=== PATIENT | male | born 1970 | race Caucasian/White ===

== ENCOUNTER 2020-01-29 17:16 | Emergency (ER) | payer OTHER ==
[~2020-01-29] VITALS: Ht 182.9 cm; Wt 136.1 kg
[~2020-01-29 17:16] MED LIST: AMIT10 PO; AMITRIPTYLINE PO; CLON2 PO; DIVA500EC PO; DULO60 PO; ENAL5 PO; FLUSAL2505 IH; GLUCOSAMINE CH1 EAC1 PO; HYDACE5 PO; HYDCHL12.5 PO; LISHYD2025 PO; LISI20 PO; MONT10T PO; Norco 5-325 Ta1 EACH PO; OLME40 PO; OXYACE5T PO; PRISTIQ ER25 MG PO; PROM25 PO; Percocet 5-3251 EACH PO; TESTOSTERONE; TESTOSTERONE IJ
[2020-01-29] MEDS ORDERED: Inderal40 MG PO (17:30)
[2020-01-29] MEDS ORDERED: LOSA50 PO (17:31)
[2020-01-29 19:51] LABS: BASOPHILS PERCENT AUTO 1 % (0-2); EOSINOPHILS ABSOLUTE AUTO 0.41 K/mm3 (0.00-0.68); EOSINOPHILS PERCENT AUTO 3 % (0-6); Hematocrit 53.2 % (37.0-53.0); Hemoglobin 17.3 g/dL (13.5-17.5); IMMATURE GRAN ABSOLUTE AUTO 0.16 K/mm3 (0.00-0.10); IMMATURE GRAN PERCENT AUTO 1 % (0-1); LYMPHOCYTES ABSOLUTE AUTO 3.28 K/mm3 (0.84-5.20); LYMPHOCYTES PERCENT AUTO 22 % (21-46); MONOCYTES PERCENT AUTO 7 % (4-13); Mean Corpuscular HGB 28.7 pg (26.0-34.0); Mean Corpuscular HGB Conc 32.5 g/dL (31.5-36.5); Mean Corpuscular Volume 88 fL (80-100); Mean Platelet Volume 9.1 fL (9.1-12.4); NEUTROPHILS ABSOLUTE AUTO 10.15 K/mm3 (1.96-9.15); NEUTROPHILS PERCENT AUTO 67 % (41-73); Platelet Count 352 K/mm3 (150-400); RDW Coefficient Variation 13.3 % (11.7-14.2); RDW Standard Deviation 43.3 fL (35.1-46.3); Red Blood Cell Count 6.03 M/mm3 (4.30-5.90)
[2020-01-29 20:16] LABS: Alanine Aminotransfer (ALT/SGP 29 U/L (12-78); Alk Phos 108 U/L (50-136); Anion Gap 5 mmol/L (6-16); Aspartate Aminotrans (AST/SGOT 15 U/L (12-37); Bilirubin, Total 0.8 mg/dL (0.1-1.0); Blood Urea Nitrogen 18 mg/dL (8-24); Bun/Creatinine Ratio 15.9 (12.0-20.0); CO2, Blood 30 mmol/L (21-32); Chloride, Blood 106 mmol/L (98-108); Creatinine, Blood 1.13 mg/dL (0.60-1.20); Globulin, Blood 4.2 g/dL (2.2-4.0); Glomerular Filtration Rate >60 (60-); Glucose, Blood 82 mg/dL (70-99); Potassium, Blood 3.8 mmol/L (3.5-5.5); Sodium, Blood 141 mmol/L (136-145); Total Protein, Blood 8.2 g/dL (6.4-8.2); Troponin I <0.015 ng/mL (0.000-0.040)
== END 2020-01-29 22:26 | disposition home or self-care (01) ==
LOC: ER 17:16
PROVIDERS: Emergency Medicine
DX: R07.89 Other chest pain (principal); I10 Essential (primary) hypertension; Z88.5 Allergy status to narcotic agent; Z79.899 Other long term (current) drug therapy; Z87.891 Personal history of nicotine dependence
CPT/HCPCS: 71101; 71250; 80053; 83690; 83735; 84484; 85025; 93005; 93010; 99285-25

== ENCOUNTER 2020-03-08 18:20 | Emergency (ER) | payer OTHER ==
[~2020-03-08] VITALS: Ht 182.9 cm; Wt 136.1 kg
[~2020-03-08 18:20] MED LIST changes: +Inderal40 MG PO; +LOSA50 PO
[2020-03-08 19:13] LABS: BASOPHILS ABSOLUTE AUTO 0.15 K/mm3 (0.00-0.23); BASOPHILS PERCENT AUTO 1 % (0-2); EOSINOPHILS ABSOLUTE AUTO 0.61 K/mm3 (0.00-0.68); EOSINOPHILS PERCENT AUTO 5 % (0-6); Hematocrit 48.1 % (37.0-53.0); Hemoglobin 15.7 g/dL (13.5-17.5); IMMATURE GRAN ABSOLUTE AUTO 0.25 K/mm3 (0.00-0.10); IMMATURE GRAN PERCENT AUTO 2 % (0-1); LYMPHOCYTES ABSOLUTE AUTO 2.99 K/mm3 (0.84-5.20); LYMPHOCYTES PERCENT AUTO 23 % (21-46); MONOCYTES ABSOLUTE AUTO 0.94 K/mm3 (0.16-1.47); MONOCYTES PERCENT AUTO 7 % (4-13); Mean Corpuscular HGB 28.3 pg (26.0-34.0); Mean Corpuscular HGB Conc 32.6 g/dL (31.5-36.5); Mean Corpuscular Volume 87 fL (80-100); Mean Platelet Volume 8.9 fL (9.1-12.4); NEUTROPHILS ABSOLUTE AUTO 7.93 K/mm3 (1.96-9.15); NEUTROPHILS PERCENT AUTO 62 % (41-73); Platelet Count 431 K/mm3 (150-400); RDW Coefficient Variation 13.2 % (11.7-14.2); RDW Standard Deviation 42.7 fL (35.1-46.3); Red Blood Cell Count 5.54 M/mm3 (4.30-5.90); White Blood Cell Count 12.87 K/mm3 (4.00-11.30)
[2020-03-08 19:17] LABS: Source, Urine Clean Catch
[2020-03-08 19:30] LABS: Bilirubin, Urine Neg (Neg); Blood, Urine 1+ (Neg); Glucose Qualitative, Urine Neg (Neg); Ketones, Urine Neg (Neg); Leukocyte Esterase, Urine Neg (Neg); Nitrite, Urine Neg (Neg); Protein, Urine 2+ (Neg); Urobilinogen, Urine NORM (Normal)
[2020-03-08 19:36] LABS: Alanine Aminotransfer (ALT/SGP 28 U/L (12-78); Albumin, Blood 3.3 g/dL (3.4-5.0); Albumin/Globulin Ratio 0.8 (0.8-1.8); Alk Phos 97 U/L (50-136); Anion Gap 8 mmol/L (6-16); Aspartate Aminotrans (AST/SGOT 25 U/L (12-37); Beta HCG, Quantitative, Serum <1 mIU/mL (0-1); Bilirubin, Total 0.5 mg/dL (0.1-1.0); Blood Urea Nitrogen 13 mg/dL (8-24); Bun/Creatinine Ratio 14.2 (12.0-20.0); CO2, Blood 23 mmol/L (21-32); Chloride, Blood 102 mmol/L (98-108); Creatinine, Blood 0.92 mg/dL (0.60-1.20); Ethanol (Alcohol), Blood, Med 80 mg/dL; Globulin, Blood 3.9 g/dL (2.2-4.0); Glomerular Filtration Rate >60 (60-); Glucose, Blood 133 mg/dL (70-99); Potassium, Blood 3.8 mmol/L (3.5-5.5); Sodium, Blood 133 mmol/L (136-145); Total Protein, Blood 7.2 g/dL (6.4-8.2)
[2020-03-08 19:47] LABS: Appearance, Urine Clear (Clear); Color, Urine Yellow (P-Yellow)
[2020-03-08 19:48] LABS: Bacteria Not Seen /hpf; Red Blood Cells, Urine Rare /hpf (0-2); Squamous Epithelial Cells Rare /hpf (Few); White Blood Cells, Urine Not Seen /hpf (0-5)
[2020-03-08 19:50] LABS: International Normalized Ratio 1.06; Prothrombin Time Results 11.3 Sec (9.7-11.5)
[2020-03-08] MEDS ORDERED: Norco 5-325 Ta1 EACH PO (20:13)
== END 2020-03-08 20:46 | disposition home or self-care (01) ==
LOC: ER 18:20
PROVIDERS: Emergency Medicine
DX: S42.115A Nondisplaced fracture of body of scapula, left shoulder, initial encounter for closed fracture (principal); S22.42XA Multiple fractures of ribs, left side, initial encounter for closed fracture; S27.321A Contusion of lung, unilateral, initial encounter; I10 Essential (primary) hypertension; F17.290 Nicotine dependence, other tobacco product, uncomplicated; Z88.5 Allergy status to narcotic agent; Z79.899 Other long term (current) drug therapy; V20.4XXA Motorcycle driver injured in collision with pedestrian or animal in traffic accident, initial encounter; Y92.410 Unspecified street and highway as the place of occurrence of the external cause
CPT/HCPCS: 70450; 71260; 72125; 74177; 80053; 81001; 83690; 84702; 85025; 85610; 96374-59; 99284-25; A9270; A9270-GY; G0480; J3010; Q9967

== ENCOUNTER 2022-02-07 12:25 | Day surgery (SDC) | payer OTHER ==
[~2022-02-07] VITALS: Ht 188 cm; Wt 123.4 kg
[2022-02-07] MEDS ORDERED: Voltaren100 GM (13:14)
[2022-02-07] MEDS ORDERED: HYDCHL25 (13:14)
[2022-02-07] MEDS ORDERED: Lithium Carbon450 MG (13:15)
[2022-02-07] MEDS ORDERED: MONT10T (13:15)
[2022-02-07] MEDS ORDERED: TELM80 (13:15)
== END 2022-02-07 14:57 | disposition home or self-care (01) ==
LOC: ORSCSDS 12:25
PROVIDERS: Internal Medicine Gastroenterology
PROC: 0DJD8ZZ Inspection of Lower Intestinal Tract, Via Natural or Artificial Opening Endoscopic (ICD-10-PCS; principal; 2022-02-07 13:30)
DX: Z12.11 Encounter for screening for malignant neoplasm of colon (principal); K57.30 Diverticulosis of large intestine without perforation or abscess without bleeding; I10 Essential (primary) hypertension; Z87.891 Personal history of nicotine dependence; E66.9 Obesity, unspecified; Z68.37 Body mass index [BMI] 37.0-37.9, adult; F31.9 Bipolar disorder, unspecified; F43.10 Post-traumatic stress disorder, unspecified; Z79.899 Other long term (current) drug therapy; G47.33 Obstructive sleep apnea (adult) (pediatric)
CPT/HCPCS: J2250; J2704; J7120

== ENCOUNTER 2023-04-22 08:50 | Emergency (ER) | payer OTHER ==
[~2023-04-22] VITALS: Ht 182.9 cm; Wt 136.1 kg
[~2023-04-22 08:50] MED LIST changes: +HYDCHL25 PO; +Lithium Carbon450 MG; +MONT10T; +TELM80 PO; +Voltaren100 GM
[2023-04-22 16:23] LABS: BASOPHILS ABSOLUTE AUTO 0.11 K/mm3 (0.00-0.23); BASOPHILS PERCENT AUTO 1 % (0-2); EOSINOPHILS ABSOLUTE AUTO 0.37 K/mm3 (0.00-0.68); EOSINOPHILS PERCENT AUTO 3 % (0-6); Hematocrit 53.3 % (37.0-53.0); Hemoglobin 18.1 g/dL (13.5-17.5); IMMATURE GRAN ABSOLUTE AUTO 0.09 K/mm3 (0.00-0.10); IMMATURE GRAN PERCENT AUTO 1 % (0-1); LYMPHOCYTES ABSOLUTE AUTO 2.62 K/mm3 (0.84-5.20); LYMPHOCYTES PERCENT AUTO 19 % (21-46); MONOCYTES ABSOLUTE AUTO 0.95 K/mm3 (0.16-1.47); MONOCYTES PERCENT AUTO 7 % (4-13); Mean Corpuscular HGB 28.7 pg (26.0-34.0); Mean Corpuscular Volume 85 fL (80-100); Mean Platelet Volume 8.6 fL (9.1-12.4); NEUTROPHILS ABSOLUTE AUTO 9.41 K/mm3 (1.96-9.15); NEUTROPHILS PERCENT AUTO 70 % (41-73); Platelet Count 373 K/mm3 (150-400); RDW Coefficient Variation 13.3 % (11.7-14.2); White Blood Cell Count 13.55 K/mm3 (4.00-11.30)
[2023-04-22 17:05] LABS: Albumin, Blood 3.9 g/dL (3.4-5.0); Bilirubin, Total 0.9 mg/dL (0.1-1.0); Bun/Creatinine Ratio 18.5 (12.0-20.0); Calcium, Blood 10.2 mg/dL (8.5-10.1); Creatinine, Blood 0.87 mg/dL (0.60-1.20); Globulin, Blood 3.9 g/dL (2.2-4.0); Potassium, Blood 3.8 mmol/L (3.5-5.5); Total Protein, Blood 7.8 g/dL (6.4-8.2)
[2023-04-22] MEDS ORDERED: DESV50 PO (22:52)
[2023-04-23 08:02] VITALS: BP 142/105
== END 2023-04-23 09:29 | disposition short-term general hospital (02) ==
LOC: ER 08:50
PROVIDERS: Emergency Medicine
DX: S22.039A Unspecified fracture of third thoracic vertebra, initial encounter for closed fracture (principal); C79.89 Secondary malignant neoplasm of other specified sites; X50.1XXA Overexertion from prolonged static or awkward postures, initial encounter; I10 Essential (primary) hypertension; Z87.891 Personal history of nicotine dependence; Z88.5 Allergy status to narcotic agent; Z79.899 Other long term (current) drug therapy
CPT/HCPCS: 72157; 72158; 80053; 85025; A9270; A9579; G0103; J1885

== ENCOUNTER 2023-08-06 04:27 | Inpatient (IN) | payer OTHER ==
[~2023-08-06] VITALS: Ht 182.9 cm; Wt 127.6 kg
[~2023-08-06 04:27] MED LIST changes: +DESV50 PO
[2023-08-06] MEDS ORDERED: NS 1,000 ML IV SCH ×3 (04:40→11:00)
[2023-08-06 04:48] LABS: Hematocrit 29.1 % (37.0-53.0); Hemoglobin 10.3 g/dL (13.5-17.5); Mean Corpuscular HGB 29.8 pg (26.0-34.0); Mean Corpuscular HGB Conc 35.4 g/dL (31.5-36.5); Mean Corpuscular Volume 84 fL (80-100); Mean Platelet Volume 9.8 fL (9.1-12.4); Platelet Count 64 K/mm3 (150-400); RDW Coefficient Variation 15.2 % (11.7-14.2); RDW Standard Deviation 44.5 fL (35.1-46.3); Red Blood Cell Count 3.46 M/mm3 (4.30-5.90); White Blood Cell Count 17.01 K/mm3 (4.00-11.30)
[2023-08-06 05:13] LABS: BAND PERCENT MAN 11 % (0-8); BASOPHILS PERCENT MAN 0 % (0-2); EOSINOPHILS PERCENT MAN 0 % (0-6); LYMPHOCYTES ABSOLUTE MAN 0.17 K/mm3 (0.84-5.20); LYMPHOCYTES PERCENT MAN 1 % (21-46); MONOCYTES ABSOLUTE MAN 0.17 K/mm3 (0.16-1.47); MONOCYTES PERCENT MAN 1 % (4-13); NEUTROPHILS ABSOLUTE MAN 16.66 K/mm3 (1.96-9.15); SEG NEUTROPHILS PERCENT MAN 87 % (41-73); TOTAL CELLS COUNTED 100
[2023-08-06 05:18] LABS: Magnesium, Blood 1.9 mg/dL (1.6-2.4)
[2023-08-06] MEDS ORDERED: OMEP20ER PO (05:27)
[2023-08-06] MEDS ORDERED: ONDA4ODT MM (05:28)
[2023-08-06] MEDS ORDERED: HYDCHL25 PO (05:28)
[2023-08-06] MEDS ORDERED: MIRALAX11914 PO (05:29)
[2023-08-06] MEDS ORDERED: LIDOCAINE1 EACH TOP (05:29)
[2023-08-06] MEDS ORDERED: HYDMOR4 PO (05:29)
[2023-08-06] MEDS ORDERED: PROC25S PR (05:29)
[2023-08-06] MEDS ORDERED: OXYC15ER PO (05:30)
[2023-08-06] MEDS ORDERED: DECADRON4 M1 PO (05:30)
[2023-08-06] MEDS ORDERED: LORA10ER PO (05:30)
[2023-08-06] MEDS ORDERED: [UNRECOGNIZED DRUG - OTHER] (05:31)
[2023-08-06] MEDS ORDERED: MORP15ER PO (05:31)
[2023-08-06] MEDS ORDERED: ELIQUIS5 M2 PO (05:32)
[2023-08-06] MEDS ORDERED: Lyrica300 MG PO (05:32)
[2023-08-06 05:41] LABS: Albumin, Blood 3.1 g/dL (3.4-5.0); Bilirubin, Total 1.4 mg/dL (0.1-1.0); Bun/Creatinine Ratio 18.3 (12.0-20.0); Calcium, Blood 8.6 mg/dL (8.5-10.1); Creatinine, Blood 0.76 mg/dL (0.60-1.20); Globulin, Blood 3.1 g/dL (2.2-4.0); Total Protein, Blood 6.2 g/dL (6.4-8.2)
[2023-08-06 05:44] LABS: Potassium, Blood 2.3 mmol/L (3.5-5.5)
[2023-08-06] MEDS ORDERED: Potassium Chl 20MEQ/Water100ML 100 ML IV SCH ×3 (05:50→22:30)
[2023-08-06] MEDS ORDERED: Magnesium Sulf 2 GM/Water 50ML 50 ML IV ONE (06:20)
[2023-08-06] MEDS ORDERED: Metoclopramide HCl 5MG / ML 2ML Vial IV ONE (06:20)
[2023-08-06] MEDS ORDERED: Ketorolac Tromethamine 30mg Vial IV ONE (06:25)
[2023-08-06 07:18] LABS: Source, Urine Clean Catch
[2023-08-06 07:24] LABS: Appearance, Urine Clear (Clear); Bilirubin, Urine Neg (Neg); Blood, Urine 4+ (Neg); Glucose Qualitative, Urine Neg (Neg); Ketones, Urine Neg (Neg); Leukocyte Esterase, Urine Neg (Neg); Nitrite, Urine Neg (Neg); Protein, Urine 2+ (Neg); Urobilinogen, Urine NORM (Normal)
[2023-08-06 07:28] LABS: Color, Urine Pale Yellow (P-Yellow)
[2023-08-06 07:31] LABS: Squamous Epithelial Cells Rare /hpf (Few); White Blood Cells, Urine 0-2 /hpf (0-5)
[2023-08-06 07:32] LABS: Bacteria Rare /hpf
[2023-08-06 07:33] LABS: Hyaline Casts 0-2 /lpf (0-2)
[2023-08-06] MEDS ORDERED: LORazepam 2 MG/ML 1ML Injection IV ONE (07:55)
[2023-08-06] MEDS ORDERED: Metoclopramide HCl 5MG / ML 2ML Vial IV PRN (11:00)
[2023-08-06] MEDS ORDERED: Acetaminophen 325 MG TABLET PO PRN (11:00)
[2023-08-06] MEDS ORDERED: NS 250 ML IV PRN (11:00)
[2023-08-06] MEDS ORDERED: Acetaminophen 650 MG Supp PR PRN (11:00)
[2023-08-06] MEDS ORDERED: ClonazePAM 1 MG Tab PO PRN (11:05)
[2023-08-06] MEDS ORDERED: Lidocaine 2% Viscous Soln 20 ML,Nystatin 100,000 Unit/ml Susp 20 ML,Mag Hydrox/Al Hydro... MT PRN (11:10)
[2023-08-06] MEDS ORDERED: HYDROmorphone HCl/Pf 1MG SYR IV PRN (11:10)
[2023-08-06] MEDS ORDERED: OxyCODONE HCL 5 MG TAB PO PRN (11:25)
[2023-08-06] MEDS ORDERED: Dexamethasone Sodium Phosphate 4 MG/ML 1ML Vial IV SCH ×2 (12:00→15:00)
[2023-08-06] MEDS ORDERED: AMLO5 PO (12:36)
[2023-08-06] MEDS ORDERED: MESNA PO (12:39)
[2023-08-06] MEDS ORDERED: Misc. Tablet PO ONE (13:50)
[2023-08-06] MEDS ORDERED: dexAMETHasone 4 MG TAB PO SCH (14:00)
[2023-08-06] MEDS ORDERED: MESNA PO SCH (14:25)
[2023-08-06] MEDS ORDERED: Pantoprazole Sodium 40 MG Injection IV SCH (16:30)
--- NOTE | 2023-08-06 17:50 | NUR ---
SHIFT SUMMARY PT AXO, PLEASANT AND COOPERATIVE WITH CARE THOUGH [facility]. PT ADMITTED THIS SHIFT. PT HAD CHEMO AT [facility] ON MONDAY AND HAS BEEN HAVING N/V SINCE. PT'S SPOUSE STATED THAT HE WAS SUPPOSED TO TAKE A MEDICATION, MESNA, 14 TABS AFTER CHEMO, HE TOOK 4 AT HOME AND THEN VOMITED AND THEY BROUGHT THE OTHER 9 PILLS HERE FOR HIM TO TAKE SOON HE IS ABLE. THIS MED ON EMAR, THOUGH PT STATES THAT HE WOULD "RATHER NOT" TAKE THEM. THIS NURSE SPOKE WITH PHARMACY ABOUT ZOFRAN FOR N/V HOWEVER THIS PATIENT HAS QT ELONGATION AND IS NOT A CANDIDATE FOR THIS MEDICATION PER DR SUNSHINE. PT MEDICATED FOR PAIN AND NAUSEA PER EMAR. FLUIDS PER EMAR THROUGH [facility]. INFORMATION CARD FOR PORT IN CHART. PT RESTING COMFORTABLY WITH CPAP IN PLACE FOR SLEEP. BED IN LOW POSITON, CALL LIGHT WIHTIN REACH. SBA TO BATHROOM.
[2023-08-06 18:25] LABS: Bun/Creatinine Ratio 17.5 (12.0-20.0); Calcium, Blood 8.2 mg/dL (8.5-10.1); Creatinine, Blood 0.8 mg/dL (0.60-1.20); Potassium, Blood 2.8 mmol/L (3.5-5.5)
--- NOTE | 2023-08-06 18:32 | NUR ---
DR SUNSHINE NOTIFIED OF [facility] OF 2.8. NEW ORDERS PLACED.
[2023-08-06] MEDS ORDERED: Potassium Chloride 40 MEQ in NS 250 ML IV STA (18:34)
[2023-08-06 19:26] VITALS: BP 137/83
[2023-08-06] MEDS ORDERED: Morphine Sulfate 15 MG TABCR PO SCH (21:00)
[2023-08-06] MEDS ORDERED: Famotidine 10 MG/ML 2ML Vial IV SCH (21:00)
[2023-08-06] MEDS ORDERED: Apixaban 5 MG Tab PO SCH (21:00)
[2023-08-06] MEDS ORDERED: Pregabalin 75 MG Cap PO SCH (21:00)
[2023-08-07 03:40] VITALS: BP 143/82
--- NOTE | 2023-08-07 04:20 | NUR ---
SHIFT SUMMARY LEONOR WAS SLEEPING BUT EASILY ROUSABLE AND FULLY ORIENTED AT START OF SHIFT. PT HAD BEEN FEELING NAUSEOUS, BUT TOLERATED HIS EVENING MEDS, DECLINED TO TAKE HIS HOME MED. AROUND 0400 PT EXPRESSED THAT HE HAD TURNED A CORNER WITH HIS NAUSEA AND WAS FEELING MUCH BETTER, HE ALSO EXPRESSED HIS INTENTION TO NO LONGER PERSUE CHEMOTHERAPY AND USE HIS REMAINING TIME TO ENJOY HIS HOME LIFE. PT SEEMED TO BE IN A GOOD HEADSPACE WITH THIS DECISION. PT RESTING IN BED AT A LOW POSITION WITH CALL LIGHT IN REACH.
[2023-08-07 05:26] LABS: Hematocrit 26.3 % (37.0-53.0); Hemoglobin 9.2 g/dL (13.5-17.5); Mean Corpuscular Volume 86 fL (80-100); Mean Platelet Volume 10.4 fL (9.1-12.4); RDW Coefficient Variation 15.2 % (11.7-14.2); RDW Standard Deviation 46.3 fL (35.1-46.3); Red Blood Cell Count 3.07 M/mm3 (4.30-5.90); White Blood Cell Count 6.73 K/mm3 (4.00-11.30)
[2023-08-07 05:33] LABS: Platelet Count 39 K/mm3 (150-400)
[2023-08-07 05:51] LABS: Bun/Creatinine Ratio 14.7 (12.0-20.0); Calcium, Blood 8.4 mg/dL (8.5-10.1); Creatinine, Blood 0.95 mg/dL (0.60-1.20); Magnesium, Blood 2.3 mg/dL (1.6-2.4); Potassium, Blood 3.1 mmol/L (3.5-5.5)
[2023-08-07 05:52] LABS: BAND PERCENT MAN 1 % (0-8); BASOPHILS PERCENT MAN 0 % (0-2); EOSINOPHILS PERCENT MAN 3 % (0-6); LYMPHOCYTES ABSOLUTE MAN 0.53 K/mm3 (0.84-5.20); LYMPHOCYTES PERCENT MAN 8 % (21-46); MONOCYTES ABSOLUTE MAN 0.06 K/mm3 (0.16-1.47); MONOCYTES PERCENT MAN 1 % (4-13); NEUTROPHILS ABSOLUTE MAN 5.92 K/mm3 (1.96-9.15); SEG NEUTROPHILS PERCENT MAN 87 % (41-73); TOTAL CELLS COUNTED 100
[2023-08-07 07:20] VITALS: BP 132/80
[2023-08-07] MEDS ORDERED: Loratadine 10 MG Tab PO SCH (09:00)
[2023-08-07] MEDS ORDERED: Lidocaine 4% 1 Patch TOP SCH (09:00)
[2023-08-07] MEDS ORDERED: Potassium Chloride 40 MEQ in NS 250 ML IV ONE ×2 (10:00→18:30)
[2023-08-07 14:52] VITALS: BP 134/77
[2023-08-07 15:27] LABS: Bun/Creatinine Ratio 17.3 (12.0-20.0); Calcium, Blood 7.9 mg/dL (8.5-10.1); Creatinine, Blood 0.93 mg/dL (0.60-1.20); Potassium, Blood 3.3 mmol/L (3.5-5.5)
[2023-08-07] MEDS ORDERED: NS 1,000 ML IV SCH (17:00)
[2023-08-07 19:54] VITALS: BP 116/74
--- NOTE | 2023-08-07 19:56 | NUR ---
SUMMARY- PT A/O X4, INDEPENDANT IN ROOM, STANDS AT BEDSIDE AND USES URINAL. PT HAS NS INFUSING INTO PORT. TOLERATING CLEAR LIQ ALL DAY. ADVANCED TO GEN DIET FOR DINNER, ATE GREEN BEANS AND CORN MUFFIN, STATES HE FEELS GREAT AND WAS ABLE TO EAT FOOD AFTER 4 DAYS OF FASTING. HAS DENIED ABD PAIN. MILD PAIN IN THROAT FROM CHEMO EFFECT CONTROLLED WITH LONG ACTING MS CONTIN AND LYRICA. USED LIDOCAIN S/S ONCE THIS AM. VOIDING AND STATES HE IS PASSING GAS. HOPEFUL- FEELS HE MAY BE READY TO GO HOME TOMORROW. REPORTED ALL TO NOC JOHN MITCHELL
--- NOTE | 2023-08-07 23:00 | NUR ---
DNR WRISTBAND PLACEMENT DNR WRISTBAND ON RIGHT WRIST. ORDER VERIFIED BY ISHMAEL JOHNSON AND POLLO ANGELO.
[2023-08-08 03:24] VITALS: BP 129/81
[2023-08-08 05:03] LABS: Hemoglobin 8.4 g/dL (13.5-17.5); Mean Corpuscular HGB 29.9 pg (26.0-34.0); Mean Corpuscular Volume 85 fL (80-100); Mean Platelet Volume 10.5 fL (9.1-12.4); RDW Coefficient Variation 15.3 % (11.7-14.2); RDW Standard Deviation 46.9 fL (35.1-46.3); Red Blood Cell Count 2.81 M/mm3 (4.30-5.90); White Blood Cell Count 2.02 K/mm3 (4.00-11.30)
--- NOTE | 2023-08-08 05:06 | NUR ---
SHIFT SUMMARY PT IS ALERT AND ORIENTED X4. PT IS INDEPENDANT IN THE ROOM. PT DID NOT SLEEP TONIGHT. PT CALLS APPROPRIATELY. PT COMPLAINED OF ABDOMINAL PAIN AND HEADACHE. PT MEDICATED PER EMAR. FRESH WATER PROVIDED THROUGHOUT THE NIGHT.
[2023-08-08 05:08] LABS: Platelet Count 24 K/mm3 (150-400)
[2023-08-08 05:26] LABS: Albumin, Blood 2.8 g/dL (3.4-5.0); Anion Gap 9 mmol/L (3-11); Blood Urea Nitrogen 16 mg/dL (8-24); CO2, Blood 21 mmol/L (21-32); Chloride, Blood 109 mmol/L (98-108); Creatinine, Blood 0.94 mg/dL (0.60-1.20); Glomerular Filtration Rate 96 (60-); Glucose, Blood 108 mg/dL (70-99); Magnesium, Blood 2.1 mg/dL (1.6-2.4); Phosphorus, Blood 1.7 mg/dL (2.5-4.9); Potassium, Blood 3.1 mmol/L (3.5-5.5); Sodium, Blood 136 mmol/L (136-145)
[2023-08-08 05:48] LABS: BAND PERCENT MAN 2 % (0-8); BASOPHILS PERCENT MAN 0 % (0-2); EOSINOPHILS ABSOLUTE MAN 0.24 K/mm3 (0.00-0.68); EOSINOPHILS PERCENT MAN 12 % (0-6); LYMPHOCYTES PERCENT MAN 10 % (21-46); MONOCYTES PERCENT MAN 0 % (4-13); NEUTROPHILS ABSOLUTE MAN 1.57 K/mm3 (1.96-9.15); SEG NEUTROPHILS PERCENT MAN 76 % (41-73); TOTAL CELLS COUNTED 100
--- NOTE | 2023-08-08 06:46 | NUR ---
CTA/MAIL ORDER BILLER I HAVE READ THIS STUDENT'S DOCUMENTATION. SHIFT SUMMARY IN MAIL ORDER BILLER NOTES
[2023-08-08 07:34] VITALS: BP 132/83
[2023-08-08] MEDS ORDERED: Potassium Chloride 20 MEQ TabCR PO SCH (09:00)
[2023-08-08] MEDS ORDERED: DESVENLAFAXINE100 MG PO (10:31)
--- NOTE | 2023-08-08 14:34 | NUR ---
PT DISCHARGED 1100 WITH DC INSTRUCTIONS. NO NEW RX. INSTRUCTED TO EAT FOODS WITH [facility]. WILL HAVE F/U LABS ON MONDAY. AMBULATED TO WHEELCHAIR, STAFF ESCORT OUT TO PRIVATE CAR. TO DRIVE HOME. BENS SENT HOME WITH PATIENT
== END 2023-08-08 11:48 | disposition home or self-care (01) | DRG 392 ==
LOC: ER 04:27 → MEDS 10:57 → ENPENDDIS 08-08 10:14 → MEDS 08-08 11:48
PROVIDERS: Student in an Organized Health Care Education/Training Program; ADMIT Internal Medicine
DX: R11.2 Nausea with vomiting, unspecified (principal); C49.9 Malignant neoplasm of connective and soft tissue, unspecified; E87.1 Hypo-osmolality and hyponatremia; T45.1X5A Adverse effect of antineoplastic and immunosuppressive drugs, initial encounter; R29.810 Facial weakness; R94.31 Abnormal electrocardiogram [ECG] [EKG]; E87.6 Hypokalemia; D72.829 Elevated white blood cell count, unspecified; E86.9 Volume depletion, unspecified; I10 Essential (primary) hypertension; E86.0 Dehydration; G47.33 Obstructive sleep apnea (adult) (pediatric); E80.6 Other disorders of bilirubin metabolism; F43.10 Post-traumatic stress disorder, unspecified; Z88.5 Allergy status to narcotic agent; Z79.899 Other long term (current) drug therapy; Z79.01 Long term (current) use of anticoagulants; Z98.890 Other specified postprocedural states; Z87.891 Personal history of nicotine dependence
CPT/HCPCS: 36415; 71045; 74177; 80048; 80053; 80069; 81001; 82248; 83690; 83735; 84145; 85025; 93005; 93010; 94762; 96361; 96365-59; 96366; 96368; 96375; 99285-25; A9270; C9113; J1100; J1170; J1642; J1885; J2060; J2765; J3475; J3480; J7030; J7050; Q9967

== ENCOUNTER 2023-08-12 08:49 | Emergency (ER) | payer OTHER ==
[~2023-08-12] VITALS: Ht 188 cm; Wt 129.3 kg
[~2023-08-12 08:49] MED LIST changes: +AMLO5 PO; +DECADRON4 M1 PO; +DESVENLAFAXINE100 MG PO; +ELIQUIS5 M2 PO; +HYDMOR4 PO; +LIDOCAINE1 EACH TOP; +LORA10ER PO; +Lyrica300 MG PO; +MESNA PO; +MIRALAX11914 PO; +MORP15ER PO; +OMEP20ER PO; +ONDA4ODT MM; +OXYC15ER PO; +PROC25S PR; +[UNRECOGNIZED DRUG - OTHER]
[2023-08-12] MEDS ORDERED: NS 1,000 ML IV SCH (10:15)
[2023-08-12 11:00] LABS: RDW Coefficient Variation 13.9 % (11.7-14.2); Red Blood Cell Count 2.14 M/mm3 (4.30-5.90)
[2023-08-12 11:02] LABS: BASOPHILS PERCENT AUTO 0 % (0-2); EOSINOPHILS ABSOLUTE AUTO 0.01 K/mm3 (0.00-0.68); EOSINOPHILS PERCENT AUTO 17 % (0-6); Hemoglobin 6.5 g/dL (13.5-17.5); IMMATURE GRAN PERCENT AUTO 0 % (0-1); LYMPHOCYTES ABSOLUTE AUTO 0.01 K/mm3 (0.84-5.20); LYMPHOCYTES PERCENT AUTO 17 % (21-46); MONOCYTES ABSOLUTE AUTO 0.01 K/mm3 (0.16-1.47); MONOCYTES PERCENT AUTO 17 % (4-13); Mean Corpuscular HGB 29.5 pg (26.0-34.0); Mean Corpuscular HGB Conc 36.5 g/dL (31.5-36.5); Mean Corpuscular Volume 81 fL (80-100); NEUTROPHILS ABSOLUTE AUTO 0.03 K/mm3 (1.96-9.15); NEUTROPHILS PERCENT AUTO 50 % (41-73); RDW Standard Deviation 40.8 fL (35.1-46.3)
[2023-08-12 11:04] LABS: Hematocrit 17.8 % (37.0-53.0); Platelet Count 6 K/mm3 (150-400); White Blood Cell Count 0.06 K/mm3 (4.00-11.30)
[2023-08-12 11:05] LABS: Albumin, Blood 2.6 g/dL (3.4-5.0); Albumin/Globulin Ratio 0.8 (0.8-1.8); Bilirubin, Total 0.9 mg/dL (0.1-1.0); Bun/Creatinine Ratio 16.1 (12.0-20.0); Calcium, Blood 8.4 mg/dL (8.5-10.1); Creatinine, Blood 0.93 mg/dL (0.60-1.20); Globulin, Blood 3.4 g/dL (2.2-4.0); Potassium, Blood 2.9 mmol/L (3.5-5.5)
[2023-08-12 11:33] LABS: BASOPHILS PERCENT MAN 0 % (0-2); EOSINOPHILS PERCENT MAN 0 % (0-6); MONOCYTES ABSOLUTE MAN 0.02 K/mm3 (0.16-1.47); MONOCYTES PERCENT MAN 40 % (4-13); NEUTROPHILS ABSOLUTE MAN 0.03 K/mm3 (1.96-9.15); SEG NEUTROPHILS PERCENT MAN 60 % (41-73); TOTAL CELLS COUNTED 5
[2023-08-12 14:31] LABS: Mean Platelet Volume 10.6 fL (9.1-12.4)
[2023-08-12 14:35] LABS: Platelet Count 11 K/mm3 (150-400)
[2023-08-12] MEDS ORDERED: Potassium Chloride 20 MEQ TabCR PO ONE (14:50)
[2023-08-12] MEDS ORDERED: NS 100 ML IV ONE (15:30)
[2023-08-12] MEDS ORDERED: Acetaminophen 500 MG Tab PO ONE (16:10)
[2023-08-12 21:50] LABS: Source, Urine Clean Catch
[2023-08-12 21:55] LABS: Bilirubin, Urine Neg (Neg); Blood, Urine 4+ (Neg); Glucose Qualitative, Urine Neg (Neg); Ketones, Urine 1+ (Neg); Leukocyte Esterase, Urine Neg (Neg); Nitrite, Urine Neg (Neg); Protein, Urine 2+ (Neg); Urobilinogen, Urine NORM (Normal)
[2023-08-12 22:06] LABS: Appearance, Urine Clear (Clear); Color, Urine Yellow (P-Yellow)
[2023-08-12 22:07] LABS: Bacteria Rare /hpf; Squamous Epithelial Cells Rare /hpf (Few); White Blood Cells, Urine 0-2 /hpf (0-5)
[2023-08-12] MEDS ORDERED: CefTRIAXone Sodium 1,000 MG in NS 100 ML IV ONE (22:10)
[2023-08-12 23:05] LABS: Calcium, Ionized (POC) 1.11 mmol/L (1.10-1.46); Chloride (POC) 87 mmol/L (98-108); Glucose (ISTAT POC) 111 mg/dL (70-99); Hemoglobin (POC) 6.5 g/dL (13.5-17.5); Potassium (POC) 3.4 mmol/L (3.5-5.5); Sodium (POC) 123 mmol/L (135-148); Total CO2 (POC) 27 mmol/L (21-32)
[2023-08-12 23:19] LABS: Hematocrit 19.2 % (37.0-53.0)
[2023-08-13] MEDS ORDERED: LEVAQUIN750 MG PO (00:05)
[2023-08-13 00:10] VITALS: BP 131/67
== END 2023-08-13 00:18 | disposition left against medical advice (07) ==
LOC: ER 08:49
PROVIDERS: Emergency Medicine; Student in an Organized Health Care Education/Training Program
DX: D64.9 Anemia, unspecified (principal); D69.6 Thrombocytopenia, unspecified; E87.6 Hypokalemia; C49.9 Malignant neoplasm of connective and soft tissue, unspecified; I10 Essential (primary) hypertension; F43.10 Post-traumatic stress disorder, unspecified; Z88.5 Allergy status to narcotic agent; Z79.899 Other long term (current) drug therapy; Z79.01 Long term (current) use of anticoagulants; Z79.891 Long term (current) use of opiate analgesic
CPT/HCPCS: 36415; 36430; 80047; 80053; 81001; 83605; 85014; 85018; 85025; 85049; 86850; 86900; 86901; 86923; 87040; 87077; 87147; 87186; 93005; 93010; 96361; 96365; 99284-25; A9270; J0696; J7030; P9016; P9035